=== PATIENT | female | born 1995 | race Hispanic/Latino ===

== ENCOUNTER 2017-02-01 14:44 | Emergency (ER) | payer OTHER ==
[~2017-02-01 14:44] MED LIST: BACTRIM DS 8001 TAB PO; EPIPEN JR0.15 MG/01 IM; IBU600 MG PO; MEDROL4 M2 PO; MOTRIN 600 MG600 MG PO; OCELLA 3 MG-0.1 EACH PO; TYLENOL #31 TAB PO
[2017-02-01 15:36] LABS: ABSOLUTE BASOPHIL COUNT 0 /CUMM (0.0-0.2); ABSOLUTE EOSINOPHIL COUNT 0.1 /CUMM (0.0-0.7); ABSOLUTE GRANULOCYTE CT 3.2 /CUMM (1.4-6.5); ABSOLUTE LYMPH COUNT 2.6 /CUMM (1.2-3.4); ABSOLUTE MONOCYTE COUNT 0.6 /CUMM (0.10-0.60); BASOPHIL % 0.6 % (0.0-2.0); EOSINOPHIL % 1.3 % (0-5); GRANULOCYTE % 48.6 % (42.2-75.2); HEMATOCRIT 36.8 % (37-47); MEAN CORPUSCULAR HGB 28.9 PG (27.0-31.0); MEAN CORPUSCULAR HGB CONC 33.9 G/DL (33.0-37.0); MEAN CORPUSCULAR VOLUME 85.3 FL (81.0-99.0); MEAN PLATELET VOLUME 7.5 FL (7.4-10.4); PLATELET COUNT 317 /CUMM (130-400); RBC DISTRIBUTION WIDTH 12.4 % (11.5-14.5); RED BLOOD CELL CT 4.32 /CUMM (4.20-5.40); WHITE BLOOD CELL COUNT 6.5 /CUMM (4.8-10.8)
--- NOTE | 2017-02-01 17:37 | CT SCAN REPORT ---
EXAMINATION: CT HEAD WITHOUT CONTRAST CLINICAL INFORMATION: Seizure activity. COMPARISON: None. TECHNIQUE: Contiguous axial images of the brain were obtained without IV contrast. DLP: 601 mGy-cm. FINDINGS: There are no pathologic extra-axial fluid collections. The lateral, third, fourth ventricles are nondilated and concordant with the appearance of the sulci. There is no evidence for acute intraparenchymal hemorrhage or infarct. There is neither mass nor mass effect. There is no shift of midline structures. The paranasal sinuses and mastoid air cells are clear. There are no osseous lesions. IMPRESSION: No evidence for acute intracranial injury.
--- NOTE | 2017-02-01 19:00 | ED AMS/SEIZURE/WEAK/DIZZY ---
History of Present Illness General Chief Complaint: General Adult Stated Complaint: "YESTERDAY I PASSED OUT BUT CANT REMEMBER" Source: patient Exam Limitations: no limitations Vital Signs & Intake/Output Vital Signs & Intake/Output Vital Signs Date Time Temp Pulse Resp B/P Pulse O2 O2 Flow FiO2 Ox Delivery Rate 02/01 1905 Room Air Room Air 02/01 1902 98.7 95 20 108/60 98 Room Air 02/01 1520 97.0 84 18 106/65 99 Room Air Allergies Coded Allergies: bee pollen (Severe, HIVES ALL OVER, DIFF SWALLOWING, SWOLLEN TONGUE 06/25/16) venom-honey bee (BEE VENOM (HONEY BEE)) (HIVES ALL OVER, DIFFICULTY SWALLOWING, SWOLLEN TONGUE 06/24/16) Reconcile Medications Epinephrine (Epipen Jr 2-Oumar) 0.15 MG/0.3 ML AUTO.INJCT 1 DIANDRA IM ONCE PRN ANAPHYLAXIS Ethinyl Estradiol/Drospirenone (Ocella 3 MG-0.03 MG Tablet) 1 EACH TABLET 1 TAB PO DAILY CONTROL (Reported) Methylprednisolone. 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 LMP WEDNESDAY CURRENTLY CO HEADACHE Triage Nurses Notes Reviewed? yes : No Patient currently breastfeeds: No HPI: Pavithra is a 21 yo f w/ no significant PMH presenting to ED for eval for syncopal episode. Patient states she was in the kitchen with her brother initially, then went to living room where she felt her knees. Pt does not recall the circumstances of this fall. She then went to bathroom and after the bathroom, patient had syncopal episode. Brother noted her stiff in the hallway w/ shaking movements. Patient also had urinary incontinence. Patient was slightly confused after the event. She does not recall anything that happened. Patient denies any previous syncopal episodes. Doesn't recall any presyncopal symptoms. Patient does say she has had extensive history of seizures in the family, such as her maternal aunt and her cousin. Past History Travel History Traveled to [place] past 21 day No Medical History Any Pertinent Medical History? see below for history Neurological: NONE EENT: allergies Cardiovascular: NONE Respiratory: NONE Gastrointestinal: NONE Hepatic: NONE Renal: NONE Musculoskeletal: NONE Psychiatric: NONE Endocrine: NONE Blood Disorders: NONE Cancer(s): NONE [employer]PERATOR/Reproductive: NONE Surgical History Surgical History: none Psychosocial History What is your primary language Polish Tobacco Use: Never used Family History Hx Contributory? No Review of Systems Review of Systems Constitutional: Denies: see HPI. Comments Review of systems: See HPI, All other systems negative. Constitutional, no chills no fever, no malaise no weight loss HEENT: No visual changes no sore throat no congestion, no ear pain Cardiovascular: No chest pain , no palpitation , no orthopnea no ankle swelling Skin, no jaundice no rashes, no change in skin Respiratory: No dyspnea no cough no sputum no hemoptysis GI: No nausea no vomiting, no diarrhea, no bloating/constipation : No dysuria No hematuria, no frequency, no discharge Muscle skeletal: No joint pain, no joint swelling, no back pain, no neck pain, Neurologic: +syncopal episode, +seizure-like activity. No numbness no confusion, no headache Psych: No stress no anxiety no depression. Heme/endocrine: No bruising no bleeding no polyuria no polydipsia Immunology: No lymphadenopathy, no splenectomy Physical Exam Physical Exam General Appearance: well developed/nourished Comments: Well-developed well-nourished person in no acute distress HEENT: Normal EENT exam; PERRL, EOMI, no nystagmus. HEAD is atraumatic. moist mucous membranes. Neck: Supple, no lymphadenopathy, normal range of motion without pain or tenderness Back: Nontender, no CVA tenderness. Full range of motion Cardiovascular: Regular rate and rhythms no murmurs rubs or gallops, normal JVP Respiratory: Chest nontender.There were no bony deformities, no asymmetry. No respiratory distress. Patient speaking in full complete sentences. Breath sounds clear to auscultation bilaterally: NO W/R/R Abdomen: Soft, nontender nondistended, no appreciable organomegaly. Normal bowel sounds. No rebound/guarding, No appreciable enlargement of the abdominal aorta, No ascites. Extremity: No edema, full range of motion of extremities, normal and equal pulses bilaterally, 5 out of 5 strength noted to bilateral upper and lower extremities Neuro: Alert oriented x3, motor sensory normal, cranial nerves II through XII grossly intact. There were no obvious focal neurologic abnormalities. Skin: No appreciable rash on exposed skin, skin is warm and dry. Psych: Mood and affect is normal, memory and judgment is normal. Core Measures ACS in differential dx? No CVA/TIA Diagnosis: No Severe Sepsis Present: No Septic Shock Present: No Progress Differential Diagnosis: arrythmia, anemia, drug intoxication, electrolyte imbalance, seizure disorder Plan of Care: Orders Procedure Date/time Status EKG 02/01 1657 Active MAGNESIUM 02/01 152 Complete LIPASE 02/01 152 Complete HUMAN BETA HCG SCREEN 02/01 152 Complete COMPREHENSIVE METABOLIC PANEL 02/01 152 Complete CBC WITHOUT DIFFERENTIAL 02/01 152 Complete AMYLASE 02/01 152 Complete Current Medications Sig/Sophia Start time Last Medication Dose Stop Time Status Admin Ibuprofen 600 MG ONCE ONE 02/01 1900 UNVr (Motrin) 02/01 190 Laboratory Tests 02/01/17 1527: Anion Gap 13, Estimated GFR > 60, BUN/Creatinine Ratio 18.3, Glucose 93, Calcium 9.9, Magnesium 1.9, Total Bilirubin 0.3, AST 23, ALT 22, Alkaline Phosphatase 89 , Total Protein 7.5, Albumin 4.3, Globulin 3.2, Albumin/Globulin Ratio 1.3, Amylase 67, Lipase 94, Total Beta HCG NEGATIVE, CBC w Diff NO MAN DIFF REQ, RBC 4.32, MCV 85.3, MCH 28.9, RDW 12.4, MPV 7.5, Gran % 48.6, Lymphocytes % 40.1, Monocytes % 9.4 H, Eosinophils % 1.3, Basophils % 0.6, Absolute Granulocytes 3.2, Absolute Lymphocytes 2.6, Absolute Monocytes 0.6, Absolute Eosinophils 0.1, Absolute Basophils 0, PUBS MCHC 33.9 Patient is otherwise healthy 21-year-old female presenting to the emergency department after none witnessed syncopal episode with possible seizure activity. She did have loss of urine with this episode and she is not normally incontinent. All the events surrounding the syncopal episode. Patient is otherwise well appearing today with completely normal nonfocal neuro exam. Pain head CT to rule out any obvious mass effect from a unknown tumor. Unlikely intracranial hemorrhage based on the lack of trauma as well as patient's young age. Patient's labs are essentially unremarkable. EKG is within normal limits without any evidence of ischemia or obvious arrhythmias. She has been well here in the emergency department only complains of a mild headache currently. Given Motrin for the headache. Patient will follow-up with Dr. Prado as an outpatient for possible epilepsy. His history family history of epilepsy. (ISHA BAL,[place]) Diagnostic Imaging: Viewed by Me: CT Scan. Discussed w/RAD: CT Scan. Radiology Impression: no acute abnormality Initial ED EKG: normal axis, normal intervals, normal p-waves, normal QRS complex, normal sinus rhythm, NSR, rhythm, no ST T wave changes Departure Departure Time of Disposition: 1851 Disposition: HOME OR SELF CARE Condition: Stable Clinical Impression Primary Impression: Syncope and collapse Referrals: JUAN BAL,ALKA Chan UNKNOWN (PCP/Family) Additional Instructions: Please follow up with Dr. Prado as an outpatient for evaluation for possible epilepsy disorder. If you have intractable headache, or unable to keep down food or drink or any other concerning symptoms please return to the emergency department for evaluation Departure Forms: Customer Survey General Discharge Information
[2017-02-01 19:02] VITALS: BP 108/60
== END 2017-02-01 19:17 ==
LOC: ERH 14:44
PROVIDERS: Emergency Medicine
DX: R55 Syncope and collapse (principal)
CPT/HCPCS: 93005; 93010